=== PATIENT | male | born 1985 ===

== ENCOUNTER 2018-09-13 17:43 | Inpatient (IN) | payer OTHER ==
[2018-09-13 17:43] VITALS: BMI 25.8
--- NOTE | 2018-09-13 19:53 | C.PDOC ---
History Of Present Illness 32 year old male presents to the ED seeking alcohol detox. Patient states his last drink was one hour prior to arrival. Patient denies suicidal/homicidal ideation. Time Seen by Provider: 09/13/18 19:11 Chief Complaint (Nursing): Substance Abuse History Per: Patient History/Exam Limitations: intoxication Onset/Duration Of Symptoms: Hrs Current Symptoms Are (Timing): Still Present Suicide/Self Injury Attempted (Context): None Modifying Factor(s): Alcohol Associated Symptoms: denies: Suicidal Thoughts, Suicidal Plan Involuntary Hold By: None Recent travel outside of the [place]: No Additional History Per: Patient Past Medical History Reviewed: Historical Data, Nursing Documentation, Vital Signs Vital Signs: Last Vital Signs Temp 98.2 F 09/13/18 18:09 Pulse 108 H 09/13/18 18:09 Resp 18 09/13/18 18:09 BP 129/89 09/13/18 18:09 Pulse Ox 96 09/13/18 18:09 - Medical History PMH: Arthritis, Gastritis, HTN (pt does not take meds for this), Hypercholesterolemia Surgical History: No Surg Hx - [facility] Procedures CLOSURE SKIN & SUBCUTANEOUS NEC (04/05/15) INJECT/INFUSE NEC (07/13/14) TETANUS TOXOID ADMINIST (11/06/13) Family History: States: Unknown Family Hx - Social History Hx Alcohol Use: Yes Hx Substance Use: Yes - Immunization History Hx Tetanus Toxoid Vaccination: Yes (unknown) Hx Influenza Vaccination: No Hx Pneumococcal Vaccination: No Review Of Systems Psych: Positive for: Other (EtOH intoxication ). Negative for: Suicidal ideation Physical Exam - Physical Exam Appears: Non-toxic, No Acute Distress Skin: Normal Color, Warm, Dry Head: Atraumatic, Normacephalic Eye(s): bilateral: Normal Inspection Oral Mucosa: Moist, Other (alcohol on breath ) Neck: Supple Chest: Symmetrical, No Deformity Cardiovascular: Rhythm Regular Respiratory: No Accessory Muscle Use Extremity: Normal ROM Neurological/Psych: Other (awake, alert and arousable to touch and verbal stimuli ) ED Course And Treatment - Laboratory Results Result Diagrams: 09/13/18 19:55 09/13/18 19:55 O2 Sat by Pulse Oximetry: 96 (on RA ) Pulse Ox Interpretation: Normal Medical Decision Making Medical Decision Making: Assessment: 32 year old make seeking alcohol detox Plan: * bloodwork * urinalysis * reassess and disposition Progress: Bloodwork and urinalysis ordered and reviewed. Disposition Discussed With Dr.: Anibal Delgado Doctor Will See Patient In The: Hospital Counseled Patient/Family Regarding: Studies Performed, Diagnosis - Disposition Disposition: HOSPITALIZED Disposition Time: 21:00 Condition: FAIR Forms: [facility] (Lithuanian) - Clinical Impression Clinical Impression: Alcohol abuse with alcohol-induced mood disorder - Scribe Statement The provider has reviewed the documentation as recorded by the Scribe (Tanvi Simms) Provider Attestation: All medical record entries made by the Scribe were at my direction and personally dictated by me. I have reviewed the chart and agree that the record a ccurately reflects my personal performance of the history, physical exam, medical decision making, and the department course for this patient. I have also personally directed, reviewed, and agree with the discharge instructions and disposition.
[2018-09-13 20:07] LABS: URINE BILIRUBIN NEGATIVE (NEGATIVE); URINE BLOOD 1+ (NEGATIVE); URINE CLARITY Clear (Clear); URINE COLOR Yellow (YELLOW); URINE GLUCOSE (UA) NORMAL (Normal); URINE LEUKOCYTE ESTERASE NEG Leu/uL (Negative); URINE PROTEIN NEGATIVE (NEGATIVE); URINE UROBILINOGEN NORMAL mg/dL (0.2-1.0)
[2018-09-13 20:17] LABS: ALB/GLOB RATIO 1.3 (1.0-2.1); ALBUMIN 4.7 g/dL (3.5-5.0); ALT/SGPT 123 U/L (21-72); AST/SGOT 158 U/L (17-59); BLOOD UREA NITROGEN 5 mg/dL (9-20); CALCIUM 9.4 mg/dl (8.6-10.4); GFR NON-AFRICAN AMERICAN > 60
[2018-09-13 20:22] LABS: BARBITURATES, UR NEGATIVE (NEGATIVE); BASO # 0.1 K/uL (0.0-0.2); BASO % 2.6 % (0.0-2.0); BENZODIAZEPINES, UR NEGATIVE (NEGATIVE); EOS # 0.2 K/uL (0.0-0.7); EOS % 3.5 % (0.0-4.0); HEMOGLOBIN 15.5 g/dL (12.0-18.0); LYMPH # 1.8 K/uL (1.0-4.3); LYMPH % 33.7 % (20.0-40.0); MEAN CELL VOLUME 96.5 fL (80.0-94.0); MEAN CORPUSCULAR HGB CONC 34.3 g/dL (33.0-37.0); MEAN PLATELET VOLUME 7.2 fL (7.2-11.7); MONO # 0.5 K/uL (0.0-0.8); MONO % 9.2 % (0.0-10.0); NEUT # 2.8 K/uL (1.8-7.0); NRBC % 0.1 % (0.0-2.0); OPIATES, UR NEGATIVE (NEGATIVE); PHENCYCLIDINE, UR NEGATIVE (NEGATIVE); RBC 4.7 Mil/uL (4.40-5.90); RED CELL DISTRIBUTION WIDTH 12.9 % (11.5-14.5); WHITE BLOOD COUNT 5.4 K/uL (4.8-10.8)
--- NOTE | 2018-09-13 21:52 | PCM.BM ---
<Laurie Kirkland - Last Filed: 09/13/18 21:51> Treatment Plan Problems - Problems identified on initial assessmt Ineffective Health Maintenance Date Initiated: 09/13/18 Time Initiated: 21:51 Assessment reference: NA Status: Active Treatment assets and liabiliti Patient Assests: cooperative, ADL independent, negotiates basic needs, cognitively intact Patient Liabilities: substance abuse (Alcohol abuse), medical problems (HTN,gastritis,arthritis, Hypercholesterolemia) - Milieu Protocol Maintain good personal hygiene: daily Encourage regular showers, daily Remind patient to perform daily oral care, daily Assist patient to perform ADL's Conduct patient checks and document Observation sheet: Q15 minutes Maintain personal safety: every shift Educate patient to report safety concerns to staff, every shift Monitor environment for contraband/sharps Medication safety: Monitor for expected outcome, potential side effects: every shift, Assess barriers to learning: every shift, Assess readiness for medication education: every shift <Anibal Delgado - Last Filed: 09/14/18 12:03> - Diagnosis (1) Alcohol use disorder, severe, dependence Status: Acute Interventions: 09/14/18 12:03 * Assess 7x/week regarding severity of withdrawal * Educate regarding risks, benefits, side effects and alternatives of medications * Use Motivational Interviewing for abstinence * Use CBT for relapse prevention * Medication management for withdrawal symptoms * Encourage medication assisted treatment * <Gabby Juarez - Last Filed: 09/16/18 13:28> Family Contact Family involvement: Famliy/SO not involved - Goals for Treatment Patient goals for treatment: Complete detox and transition to an outpatient counseling program. Discharge/Continuing Care - Education Needs Education Needs: Patient Medication, Patient Diagnosis/Disease Process, Patient Coping Skills, Patient Anger Management skills, Patient Placement options, Patient Community resources - Discharge Discharge Criteria: No longer exhibiting s/s of withdrawal, Reduction of target symptoms Discharge to:: Home - Treatment Team Participation Patient/Family/SO Statement: 09/16/18 13:27 "I wanna go to an outpatient near my house..." Discussed with Family/SO: No Was Patient/Family/SO present at Treatment Team Meeting: Yes
[2018-09-14] MEDS: Multiple Vitamins Tab PO SCH (10:35)
--- NOTE | 2018-09-14 11:53 | PCM.PSYCH ---
Initial Psychiatric Evaluation - Initial Psychiatric Evaluation Type of Admission: Voluntary Legal Status: Capacity Chief Complaint (in patient's own words): "I need help" History of Present Illness and Precipitating Events: The patient is seen, chart reviewed and case discussed. This is a 22-year-old male, single with no children, unemployed and lives with his mother. The patient is here for alcohol detox. This is his first detox. Collateral information is obtained from his mother. He admits to drinking from [employer] to night "nonstop". He says he drinks 24 ounce beers, and many of them. He couldn't tell the exact number. He says he doesn't allow himself to get into bad withdrawals but he feels very shaky when he doesn't drink and one time he got confused. No seizures. He started when he was 16 and it has been a problem the last 10 years. He also smokes marijuana on and off and he was in rehabilitation when he was 16 years old because of that. He denies drug use but he smokes 3 cigarettes a day. The patient reports severe depressive symptoms and anxiety. He admits to never having sought treatment because of drinking too much. He denies suicidal ideation but he sometimes feels like it. No doreen or psychotic symptoms. Medical history: Patient had high blood pressure, high cholesterol and likely rheumatoid arthritis. He has been noncompliant with any of his treatments and has not been following up. Past psych history: No admissions and no suicide attempts. However his been chronically depressed. Family psych history: Uncle and grandfather's alcoholism. Current Medications: Active Medications Generic Name Dose Route Start Last Admin Trade Name Shirley PRN Reason Stop Dose Admin Clonidine HCl 0.1 mg 09/13/18 22:25 Catapres PO Q4H PRN Symptoms of alcohol withdrawl Folic Acid 1 mg 09/14/18 10:00 09/14/18 10:35 Folic Acid PO 1 mg DAILY DORCAS Administration Lorazepam 1 mg 09/13/18 22:25 Ativan PO Q4H PRN Symptoms of alcohol withdrawl Lorazepam 1 mg 09/13/18 22:30 09/14/18 08:20 Ativan PO 09/18/18 22:29 1 mg Q4 DORCAS Administration Taper Multivitamins 1 tab 09/14/18 10:00 09/14/18 10:35 Hexavitamin PO 1 tab DAILY DORCAS Administration Thiamine HCl 100 mg 09/14/18 10:00 09/14/18 10:36 Vitamin B1 Tab PO Not Given DAILY DORCAS Trazodone HCl 50 mg 09/13/18 22:25 Desyrel PO HS PRN Insomnia Past Psychiatric History - Past Psychiatric History Previous Treatment History: None Pertinent Medical Hx (Current Medical&Sleep Prob, Allergies): Allergies Allergy/AdvReac Type Severity Reaction Status Date / Time mussels Allergy SWELLING Verified 08/31/18 00:34 Penicillins Allergy unknown Verified 08/31/18 00:34 No Known Home Med 09/13/18 Review of Systems - Psychiatric Psychiatric: Abnormal Sleep Pattern, Anhedonia, Anxiety, Depression, Difficulty Concentrating. absent: Hallucinations, Homicidal Ideation, Paranoia, Suicidal Ideation Mental Status Examination - Personal Presentation Personal Presentation: Looks stated age - Affect Affect: Constricted - Motor Activity Motor Activity: Calm - Reliability in Providing Information Reliability in Providing Information: Good - Speech Speech: Organized - Mood Mood: Depressed, Anxious - Formal Thought Process Formal Thought Process: No Impairment - Cognitive Functions Orientation: Person, Place, Situation, Time Sensorium: Alert Attention/Concentration: Easily distracted Estimate of Intelligence: Average Judgement: Intact, as evidence by: Insight regarding need for hospitalization Memory: Recent intact, as evidence by: Ability to recall events of the day, Remote intact, as evidenced by: Abilit to recall sig. life events - Risk Risk: Withdrawal, Diminished functioning - Strength & Assets Inventory Strength & Assets Inventory: Cooperative - Limitations Limitations: Other DSM 5 DX - DSM 5 DSM 5 Diagnosis: Alcohol withdrawal Alcohol use disorder, severe Cannabis use disorder, mild Tobacco use disorder, mild Depressive disorder, unspecified APOORVA - Recommended/Plan of Treatment Treatment Recommendations and Plan of Treatment: Taper with Ativan because of impaired liver. He had significant withdrawal and treatment started last night Remeron for depression Gabapentin for augmentation CBT and support for depression and anxiety but consider SSRIs As needed medications All risks, benefits and alternatives of the meds discussed, and the pt agreed and understood. Attend groups and activities Supportive therapy and psychoeducation NM for abstinence CBT for relapse prevention Encourage MAT Refer to rehab or IOP, and self-help groups Teach healthy lifestyle methods, i.e. diet, exercise, meditation Smoking cessation with NM Nicotine patch if needed 34 min Projected ELOS: 4 days Prognosis: good w treatment - Smoking Cessation Smoking Cessation Initiated: Yes
--- NOTE | 2018-09-14 17:14 | RAD ---
HISTORY: chronic cough, alcoholism COMPARISON: None available. TECHNIQUE: Chest PA and lateral FINDINGS: LUNGS: No focal consolidation. Please note that chest x-ray has limited sensitivity for the detection of pulmonary masses. PLEURA: No significant pleural effusion identified. No definite pneumothorax . CARDIOVASCULAR: The cardiomediastinal silhouette appears within normal limits of size. No atherosclerotic calcification present. OSSEOUS STRUCTURES: No acute osseous abnormality identified. VISUALIZED UPPER ABDOMEN: Unremarkable. OTHER FINDINGS: None. IMPRESSION: No focal consolidation.
[2018-09-15] MEDS: Multiple Vitamins Tab PO SCH (09:14)
--- NOTE | 2018-09-15 11:03 | PCM.PYCHPN ---
Psychiatric Progress Note - Psychiatric Progress Note Patient seen today, length of contact: 16 min Patient Chief Complaint: "I am not well" Problems Identified/Issues Discussed: The pt is seen, chart reviewed, case discussed with staff. The pt is compliant with medications and reports no side-effects. Symptoms are improving but needs more time to stabilize. Pt attends groups and activities. Support given, psycho-education provided. After care discussed. Medication Change: Yes (detox changes daily) Medical Record Reviewed: Yes Mental Status Examination - Cognitive Function Orientation: Person, Place, Situation, Time Memory: Intact Attention: Poor Concentration: Poor Association: WNL Fund of Knowledge: WNL - Mood Mood: Depressed, Anxious - Affect Affect: Constricted - Speech Speech: Appropriate - Formal Thought Process Formal Thought Process: No Impairment - Suicidal Ideation Suicidal Ideation: No - Homicidal Ideation Homicidal Ideation: No Goal/Treatment Plan - Goal/Treatment Plan Need for Continued Stay: Discharge may exacerbated symptoms, Severe functional impairment Progress Toward Problem(s) and Goals/Treatment Plan: Taper with Ativan because of impaired liver. He had significant withdrawal and treatment started last night Remeron for depression Gabapentin for augmentation CBT and support for depression and anxiety but consider SSRIs As needed medications All risks, benefits and alternatives of the meds discussed, and the pt agreed and understood. Attend groups and activities Supportive therapy and psychoeducation MA for abstinence CBT for relapse prevention Encourage MAT Refer to rehab or IOP, and self-help groups Teach healthy lifestyle methods, i.e. diet, exercise, meditation Smoking cessation with MA Nicotine patch if needed
[2018-09-15 12:25] VITALS: RESP 18
[2018-09-16] MEDS: Multiple Vitamins Tab PO SCH (10:00)
--- NOTE | 2018-09-16 14:22 | PCM.PYCHPN ---
Psychiatric Progress Note - Psychiatric Progress Note Patient seen today, length of contact: 16 min Patient Chief Complaint: "I am a little better" Problems Identified/Issues Discussed: The pt is seen, chart reviewed, case discussed with staff. Support and psychoeducation given, CBT and DE used briefly No new symptoms reported, improving slowly and needs more time No SEs from medications, risks discussed. After care discussed Medication Change: Yes (detox changes daily) Medical Record Reviewed: Yes Mental Status Examination - Cognitive Function Orientation: Person, Place, Situation, Time Memory: Intact Attention: Poor Concentration: Poor Association: WNL Fund of Knowledge: WNL - Mood Mood: Depressed, Anxious - Affect Affect: Constricted - Speech Speech: Appropriate - Formal Thought Process Formal Thought Process: No Impairment - Suicidal Ideation Suicidal Ideation: No - Homicidal Ideation Homicidal Ideation: No Goal/Treatment Plan - Goal/Treatment Plan Need for Continued Stay: Discharge may exacerbated symptoms, Severe functional impairment Progress Toward Problem(s) and Goals/Treatment Plan: Taper with Ativan because of impaired liver. He had significant withdrawal and treatment started last night Remeron for depression Gabapentin for augmentation CBT and support for depression and anxiety but consider SSRIs As needed medications All risks, benefits and alternatives of the meds discussed, and the pt agreed and understood. Attend groups and activities Supportive therapy and psychoeducation DE for abstinence CBT for relapse prevention Encourage MAT Refer to rehab or IOP, and self-help groups Teach healthy lifestyle methods, i.e. diet, exercise, meditation Smoking cessation with DE Nicotine patch if needed Estimated Date of D/C: 09/17/18
--- NOTE | 2018-09-17 08:27 | PCM.PYCHDC ---
Mental Status Examination - Mental Status Examination Orientation: Person Discharge Summary - Discharge Note Consultations:: List each consultation separately and include: 1. Reason for request. 2. Findings. 3. Follow-up Summary of Hospital Course include:: 1. Description of specific treatment plan utilized for patients during their course of treatmen. 2. Summarize the time- course for resolution of acute symptoms and/or regressed behaviors. 3. Describe issues identified and worked on during hospitalization. 4. Describe medication utilized. 5. Describe medical problems identified and treated. 6. Reassessment of suicide risk Summary of Hospital Course: The patient is seen, chart reviewed and case discussed. This is a 22-year-old male, single with no children, unemployed and lives with his mother. The patient is here for alcohol detox. This is his first detox. Collateral information is obtained from his mother. He admits to drinking from sports [employer] to night "nonstop". He says he drinks 24 ounce beers, and many of them. He couldn't tell the exact number. He says he doesn't allow himself to get into bad withdrawals but he feels very shaky when he doesn't drink and one time he got confused. No seizures. He started when he was 16 and it has been a problem the last 10 years. He also smokes marijuana on and off and he was in rehabilitation when he was 16 years old because of that. He denies drug use but he smokes 3 cigarettes a day. The patient reports severe depressive symptoms and anxiety. He admits to never having sought treatment because of drinking too much. He denies suicidal ideation but he sometimes feels like it. No dorene or psychotic symptoms. Medical history: Patient had high blood pressure, high cholesterol and likely rheumatoid arthritis. He has been noncompliant with any of his treatments and has not been following up. Past psych history: No admissions and no suicide attempts. However his been chronically depressed. Family psych history: Uncle and grandfather's alcoholism. He will attend [facility]. - Diagnosis (1) Alcohol use disorder, severe, dependence Current Visit: Yes Status: Acute - Final Diagnosis (DSM 5) Condition upon Discharge: FAIR Disposition: HOME/ ROUTINE Follow-up Treatment Plan: Taper with Ativan because of impaired liver. He had significant withdrawal and treatment started last night Remeron for depression Gabapentin for augmentation CBT and support for depression and anxiety but consider SSRIs As needed medications All risks, benefits and alternatives of the meds discussed, and the pt agreed and understood. Attend groups and activities Supportive therapy and psychoeducation MN for abstinence CBT for relapse prevention Encourage MAT Refer to rehab or IOP, and self-help groups Teach healthy lifestyle methods, i.e. diet, exercise, meditation Smoking cessation with MN Nicotine patch if needed Prescriptions/Medication Reconciliation: Gabapentin [Neurontin] 300 mg PO BID #60 cap Mirtazapine [Remeron] 30 mg PO HS #30 tab traZODone [Desyrel] 50 mg PO HS PRN #30 tab PRN Reason: Insomnia
[2018-09-17 09:36] VITALS: BP 111/76; PULSE 81; TEMP 98; O2SAT 100
[2018-09-17] MEDS: Multiple Vitamins Tab PO SCH (10:01)
== END 2018-09-17 11:15 | disposition home or self-care (01) | DRG 750 ==
LOC: C.ER 17:43 → C.7D 20:59
PROVIDERS: ADMIT Psychiatry & Neurology Psychiatry; ATTEND Psychiatry & Neurology Psychiatry
PROC: HZ2ZZZZ Detoxification Services for Substance Abuse Treatment (ICD-10-PCS; principal; 2018-09-13)
PROC: HZ52ZZZ Individual Psychotherapy for Substance Abuse Treatment, Cognitive-Behavioral (ICD-10-PCS; 2018-09-13)
PROC: HZ59ZZZ Individual Psychotherapy for Substance Abuse Treatment, Supportive (ICD-10-PCS; 2018-09-13)
PROC: HZ56ZZZ Individual Psychotherapy for Substance Abuse Treatment, Psychoeducation (ICD-10-PCS; 2018-09-13)
PROC: HZ46ZZZ Group Counseling for Substance Abuse Treatment, Psychoeducation (ICD-10-PCS; 2018-09-13)
PROC: GZHZZZZ Group Psychotherapy (ICD-10-PCS; 2018-09-13)
PROC: GZ58ZZZ Individual Psychotherapy, Cognitive-Behavioral (ICD-10-PCS; 2018-09-13)
PROC: GZ56ZZZ Individual Psychotherapy, Supportive (ICD-10-PCS; 2018-09-13)
PROC: HZ42ZZZ Group Counseling for Substance Abuse Treatment, Cognitive-Behavioral (ICD-10-PCS; 2018-09-13)
DX: F10.230 Alcohol dependence with withdrawal, uncomplicated (principal); K72.90 Hepatic failure, unspecified without coma; Y90.8 Blood alcohol level of 240 mg/100 ml or more; E78.00 Pure hypercholesterolemia, unspecified; F10.24 Alcohol dependence with alcohol-induced mood disorder; F12.10 Cannabis abuse, uncomplicated; F17.210 Nicotine dependence, cigarettes, uncomplicated; F32.9 Major depressive disorder, single episode, unspecified; F41.1 Generalized anxiety disorder; M06.9 Rheumatoid arthritis, unspecified; I10 Essential (primary) hypertension; Z91.19 Patient's noncompliance with other medical treatment and regimen